=== PATIENT | male | born 1965 | race Caucasian/White ===

== ENCOUNTER 2018-07-07 07:22 | Day surgery (SDC) ==
[2014-12-29 11:01] VITALS: BMI 34.9
[2018-07-07 08:11] VITALS: TEMP 97.7
[2018-07-07] MEDS ORDERED: SUBLIMAZE ONE (09:04)
[2018-07-07] MEDS ORDERED: VERSED ONE (09:04)
[2018-07-07] MEDS ORDERED: DIPRIVAN 20 ML VIAL IVP ONE (09:04)
[2018-07-07 13:40] VITALS: BP 123/788
--- NOTE | 2018-07-08 09:54 | OP ---
INDICATIONS FOR PROCEDURE: 53-year-old gentleman presents for a screening colonoscopy exam. MEDICATIONS: SEE ANESTHESIA NOTES. PROCEDURE: COLONOSCOPY. REPORT: The risks, benefits, alternatives and limitations were discussed in detail with the patient. Informed consent was obtained. After adequate sedation was achieved, a digital rectal exam revealed good tone, no masses. The colonoscope was introduced into the rectum and advanced under direct visual guidance to the cecum. The cecum was identified by the appendiceal orifice and IC valve. I then slowly withdrew the scope in a circumferential manner examining the mucosa quite carefully. I looked on the proximal and distal side of folds and flexures as best as possible. I was able to retroflex the scope in the right colon and left colon to increase visualization. The colonic mucosa was unremarkable its entire length including on retroflex review of the anal canal. The prep was good. The withdrawal time was 10 minutes and 50 seconds. The patient tolerated the procedure well with stable vital signs and pulse oximetry throughout. IMPRESSION: 1. Normal colonoscopy. RECOMMENDATIONS: 1. High fiber diet. 2. Office visit as needed. 3. Screening colonoscopy examination again in 10 years or sooner if he should develop signs or symptoms. CC: DR. ANNALEE JONES
== END 2018-07-07 10:40 | disposition home or self-care (01) ==
LOC: SURG 07:22
PROVIDERS: ATTEND Internal Medicine Gastroenterology
DX: Z12.11 Encounter for screening for malignant neoplasm of colon (principal)